=== PATIENT | female | born 1980 | race Caucasian/White ===

== ENCOUNTER 2018-02-11 07:38 | Day surgery (SDC) | payer BC, SELFPAY ==
[2018-02-05 11:48] LABS: Anion Gap 7 (5-15); BUN 9 mg/dL (7-18); BUN/Creat Ratio 10.8 RATIO (10-20); Calcium,Total 8.8 mg/dL (8.5-10.1); Chloride 107 mmol/L (98-107); Creatinine, Serum 0.84 mg/dL (0.55-1.02); EST Glomerular Filtration Rate 82 mL/min (>60); Est Glom Filt Rate - Afr Amer 99 mL/min (>60); Glucose 90 mg/dL (74-106); Sodium Level 141 mmol/L (136-145); Thyroid Stim Hormone (TSH) 1.94 uIU/mL (0.358-3.74)
[2018-02-11] VITALS (7 sets, daily range): BP systolic 116–139; BP diastolic 77–90; PULSE 67–78; RESP 16; TEMP 36.1–36.8; O2SAT 95–100; BMI 35.6
[2018-02-11 08:05] LABS: Internal QC Validated? YES +Cl - CLEAR BKGD
[2018-02-11 08:09] LABS: Pregnancy, Urine Negative Negative
[2018-02-11] MEDS: Bacitracin 500 UNITS/GM PACKET (08:40)
--- NOTE | 2018-02-11 09:00 | SEP_PTH ---
PATIENT: ALVIN CORDOBA LOC: [facility] [place] U#:[id number] AGE/SX: 37/F ROOM: RE02/11/[address]: Dr. Sigifredo Wisdom MD : 1980 BED: DIS: 02/11/2018 SPEC #: [id number] RECD: 02/11/18 16:07 STATUS: KAMILLA SAURAV #: [id number] ANGELO: 02/11/18 09:[address]: Sigifredo Wisdom DEPT: SURGICAL PATHOLOGY RECD BY: Marc Howell ENTERED: 02/14/18 07:31 SP TYPE: SEPTUM OTHR DR: Dr. Sigifredo Zamudio MD Out [facility] Doctor Tissues: Nasal septum, NOS Procedures: Decalcification bone/plaque Surgery Specimen Level III HEADER OPERATION: Septoplasty PRE-OP DIAGNOSIS: Deviated nasal septum TISSUE SUBMITTED: Nasal septal contents MICROSCOPIC DIAGNOSIS Nasal septal contents: Fragments of cartilage, clinically deviated nasal septum. SJ:lizz 02/17/18 MICROSCOPIC DESCRIPTION Slides are reviewed. GROSS DESCRIPTION Received in fixative is one container labeled with the patient's name and designated nasal septal contents. The specimen consists of multiple pieces of cartilage and possible pieces of bone that in aggregate measure 3 x 3 x 1.5 cm. Generation Technologist tissue is submitted in one cassette after decalcification. / DORCAS:lizz 02/14/18 TC:5 CPT: 81461, 54918
[2018-02-11] MEDS: Lidocaine 4% 50 ML Bottle (09:14)
[2018-02-11] MEDS: Oxymetazoline 0.05% 1 SPRAY SPRAY.BTL 15 SPRAY (09:14)
--- NOTE | 2018-02-11 09:52 | PCM.OPRPT ---
Problem List (1) Deviated nasal septum Status: Chronic Report of Operation Date of Procedure: 02/11/18 Pre-Operative Diagnosis: Deviated nasal septum Post-Operative Diagnosis: same Surgery/Procedure Performed:: Septoplasty Description of Surgical Findings:: Alex is a 37-year-old female complains of chronic left-sided nasal obstruction failing appropriate medical therapy. Examination showed marketed nasal septal deviation with a large bony spur near completely obstructing the left nasal passage and the above procedure was offered for relief. The patient was eager to proceed. The risks, alternatives, potential benefits, and complications were discussed at length and any questions answered to the patient and/or caregiver's satisfaction. Witnessed informed consent was obtained in the office, and the patient and/or caregiver was agreeable to proceed. Procedure went as follows: The patient was identified in the preoperative holding and brought to the operating room, was placed under general anesthesia and intubated. When appropriate anesthesia was obtained, pledgets soaked in a 50-50 mixture of oxymetazoline and 4% topical lidocaine were placed to decongest the nasal mucosa. The nasal septum was then injected beginning on the left side with 1% lidocaine with 100,000 epinephrine for a total of 9 cc. The pledgets were then removed and the left nasal cavity examined. There was noted to be significant nasal septal deviation to the left. Using a 15 blade scalpel, a hemitransfixion incision was then made in the left side and using the [place] elevator a subperichondrial/periosteal flap was elevated. The septum was then transected at the bony cartilaginous junction and similar flap raised on the contralateral side. Using a Duane-Ezequiel forceps the septum was then sharply transected superiorly and the deviated portions removed with a Re forceps. Any inferior bony spur was then removed with a chisel allowing for midline placement of the nasal septum. The hemitransfixion incision was then closed with interrupted 4-0 chromic gut suture followed by a 4-0 plain quilting suture to reapproximate the mucosal flaps. Wiley splints coated with Bacitracin ointment were then applied to each nasal cavity and secured at the columella with a single 3-0 Prolene suture. An NG tube was then placed to decompress the stomach and the patient returned to anesthesia, revived and extubated having tolerated the procedure well. Type of Anesthesia:: General Anesthesiologist: Garrett Hung Special Medications: none Specimen's removed: septal cartilage and bone Drains: none Estimated Blood Loss (mL): 25 mL Fluids Replaced: 800 mL Grafts/Implants Used: Wiley splints - Complications none - Admit VTE Documentation VTE Present on Admission: No VTE Mechan Device Prophylaxis: SCD's VTE Pharm Prophylaxis ordered?: No
--- NOTE | 2018-02-11 09:56 | PCM.DC ---
- Discharge Diagnoses Current Active Problems: Current Active and Chronic Problems Deviated nasal septum (Chronic) You will use the following diet at home:: No restrictions, Regular Discharge Activity: Return to Normal Activity, May not drive while taking narcotic pain medications. Call your doctor if your incision/area has: Continuous Slow Oozing, Sudden Increased Bleeding Call your doctor if you observe: Fever of 101 or Higher, Uncontrolled pain Allergies/Adverse Reactions: Allergies latex Allergy (Verified 02/04/18 08:55) Rash nickel Allergy (Verified 02/04/18 08:55) Rash SEASONAL ALLERGIES Allergy (Uncoded 02/04/18 08:55) Other Medications to take at Discharge Cholecalciferol (VIT D3) [Vitamin D] 1,000 unit PO DAILY 02/04/18 Citracal Sr 1 tab PO QHS 02/04/18 Cyanocobalamin (Vitamin B-12) [Vitamin B-12] 2,000 mcg PO DAILY 02/04/18 Ethynodiol D-Ethinyl Estradiol [Kelnor 1-35 28 Tablet] 1 each PO DAILY 02/04/18 Fexofenadine HCl [Tasia Allergy] 180 mg PO DAILY 02/04/18 Montelukast Sodium [Singulair] 10 mg PO QHS 02/04/18 Multivits,Ca,Minerals/Iron/FA [Women's Daily Formula Caplet] 1 each PO DAILY 02/04/18 [place]-3 Fatty Acids/Fish Oil [Fish Oil 1,000 mg Capsule] 1 each PO QHS 02/04/18 Papaya [Papaya Enzyme] 4 each PO DAILY 02/04/18 RX: Hydroxyzine HCl 25 mg PO Q8H PRN PRN 02/04/18 Primary Care Physician: Cosmo Palomino,Out of [Primary Care Provider] - Please Follow Up With: Sigifredo Wisdom MD When: 5 days
== END 2018-02-11 12:05 | disposition home or self-care (01) ==
LOC: SDC 07:39 → AC 07:44
PROVIDERS: Anesthesiology; Visit Provider Otolaryngology
PROC: (CPT 30520; principal; 2018-02-11 08:45)
DX: J34.2 Deviated nasal septum (principal); J30.9 Allergic rhinitis, unspecified; K90.0 Celiac disease; F41.9 Anxiety disorder, unspecified; Z86.2 Personal history of diseases of the blood and blood-forming organs and certain disorders involving the immune mechanism; Z79.899 Other long term (current) drug therapy
CPT/HCPCS: 00160; 30520; 36415; 80048; 81025; 84443; 88304; 88311; J7120; J2405